=== PATIENT | female | born 1970 | race Caucasian/White ===

== ENCOUNTER 2016-03-16 10:45 | Emergency (ER) | payer OTHER ==
[~2016-03-16] VITALS: Ht 157.5 cm; Wt 53.2 kg
[~2016-03-16 10:45] MED LIST: BENADRYL; BENADRYL25 M2 PO; CEPHALEXIN500 M1 PO; CORTISPORIN OTI10 ML OT; DIGOXIN0.25 MG PO; ELIQUIS 5MG PO; FLONASEALLERGY NS; FOLIC ACID; KLOR-CON M2020 MEQ PO; LEVOTHYROXINE PO; LORTAB 5/500 501 TAB PO; MOTRIN 800800 MG/TAB PO; MVI; NORCO 325 MG-51 TAB PO; OMNICEF 300MG300 MG PO; PERCOCET 325 MG1 TA2 PO; POTASSIUM CH2 MEQ/ML PO; REGLAN 5MG T5 MG/TAB PO; ROXICODONE 55 MG/TAB PO; SINGULAIR PO; SYNTHROID0.075 MG/T PO; ULTRAM 50MG TAB50 MG PO; WELLBUTRIN PO; WELLBUTRIN XL300 M1 PO; ZOFRAN INJ4 MG/2 ML PO; ZOFRAN ODT4 MG PO; ZOFRAN8 MG PO; ZYRTEC 10MG10 MG PO; ZYRTEC10 MG PO
[2016-03-16 10:49] VITALS: TEMP 98.1
[2016-03-16] MEDS ORDERED: KLOR-CON M2020 MEQ PO (11:16)
[2016-03-16 11:17] LABS: BASO # 0.1 (0.0-0.2); BASO % 0.7 % (0.0-2.0); EOS % 0.3 % (0-4.0); GRAN # 3.6 (1.4-6.5); GRAN % 50.2 % (42.2-75.2); HEMATOCRIT 44.3 % (37.0-47.0); HEMOGLOBIN 15.4 g/dl (12.5-16.0); LYMPH % 41.2 % (20.0-51.0); MEAN CELL VOLUME 87 fl (80.0-100.0); MEAN CORPUSCULAR HEMOGLOBIN 30 pg (27.0-31.0); MEAN CORPUSCULAR HGB CONC 35 g/dl (33.0-37.0); MEAN PLATELET VOLUME 8.9 fl (7.4-10.4); MONO # 0.5 (0.1-0.6); MONO % 7.3 % (1.7-9.3); PLATELET COUNT 265 K/mm3 (130-400); RED BLOOD COUNT 5.12 M/mm3 (4.10-5.30); REDCELL DISTRIBUTION WIDTH-CV 13.3 % (11.5-14.5); WHITE BLOOD COUNT 7.2 K/mm3 (4.8-10.8)
[2016-03-16 11:31] LABS: ADJUSTED CALCIUM 9.2 mg/dL (8.4-10.2); ALANINE AMINOTRANSFERASE 35 U/L (9-52); ALBUMIN 4.8 gm/dL (3.5-5.0); ALKALINE PHOSPHATASE 73 U/L (50-136); ANION GAP 12 mmol/L (7-16); BILIRUBIN,TOTAL 1.5 mg/dL (0.0-1.0); BLOOD UREA NITROGEN 8 mg/dL (7-17); CALCIUM 9.8 mg/dL (8.4-10.2); CARBON DIOXIDE 18 mmol/L (22-30); CHLORIDE 108 mmol/L (98-107); GLUCOSE 96 mg/dL (74-106); LIPASE 84 U/L (23-300); POTASSIUM 3.9 mmol/L (3.4-5.0); SODIUM 138 mmol/L (137-145); TOTAL PROTEIN 7.8 gm/dL (6.4-8.2)
[2016-03-16 11:34] LABS: C-REACTIVE PROTEIN < 0.5 mg/dL (0.0-0.9)
[2016-03-16 11:41] LABS: PH 8 (5-8); SQUAMOUS EPITHELIAL 0-2 /hpf; URINE APPEARANCE Clear; URINE BACTERIA None Seen /hpf; URINE BILIRUBIN Negative (NEGATIVE); URINE BLOOD Negative (NEGATIVE); URINE COLOR Yellow; URINE GLUCOSE Negative (NEGATIVE); URINE KETONE Negative (NEGATIVE); URINE UROBILINOGEN Negative (NEGATIVE); URINE WBC 0-2 /hpf
[2016-03-16] MEDS ORDERED: PERCOCET 325 MG1 TA2 PO (15:06)
[2016-03-16] MEDS ORDERED: ZOFRAN ODT4 MG PO (15:06)
[2016-03-16 15:59] VITALS: BP 124/84; PULSE 78
== END 2016-03-16 16:01 | disposition home or self-care (01) ==
LOC: COL.ER 10:45
PROVIDERS: Emergency Medicine
DX: R10.13 Epigastric pain (principal); R11.2 Nausea with vomiting, unspecified; Z86.718 Personal history of other venous thrombosis and embolism; Z79.01 Long term (current) use of anticoagulants
CPT/HCPCS: J1170; J1200; J1630; J2405; J2765; J3010; J7030

== ENCOUNTER 2016-04-06 15:00 | Outpatient (RCR) | payer OTHER | END 2016-04-07 | disposition still patient (30) | LOC: WSPT | DX: R53.81 Other malaise (principal) ==

== ENCOUNTER → 2016-05-18 | Outpatient (CLI) | payer OTHER ==
[~2016-05-18] MED LIST changes: +NEURONTIN100 MG/CAP PO
== END ==
LOC: COL.RAD 09:24
DX: I47.1 Supraventricular tachycardia (principal); R53.81 Other malaise

== ENCOUNTER 2016-06-08 09:21 | Emergency (ER) | payer OTHER ==
[~2016-06-08] VITALS: Ht 157.5 cm; Wt 53.2 kg
[~2016-06-08 09:21] MED LIST changes: -NEURONTIN100 MG/CAP PO
[2016-06-08 09:24] VITALS: TEMP 98
[2016-06-08 10:15] LABS: BASO % 0.6 % (0.0-2.0); EOS % 0.1 % (0-4.0); GRAN # 3.9 (1.4-6.5); GRAN % 56.9 % (42.2-75.2); HEMATOCRIT 41.6 % (37.0-47.0); HEMOGLOBIN 14.4 g/dl (12.5-16.0); LYMPH # 2.4 (1.2-3.4); LYMPH % 34.7 % (20.0-51.0); MEAN CELL VOLUME 90 fl (80.0-100.0); MEAN CORPUSCULAR HEMOGLOBIN 31 pg (27.0-31.0); MEAN CORPUSCULAR HGB CONC 35 g/dl (33.0-37.0); MEAN PLATELET VOLUME 9.4 fl (7.4-10.4); MONO # 0.5 (0.1-0.6); MONO % 7.4 % (1.7-9.3); PLATELET COUNT 232 K/mm3 (130-400); RED BLOOD COUNT 4.63 M/mm3 (4.10-5.30); REDCELL DISTRIBUTION WIDTH-CV 12.8 % (11.5-14.5); WHITE BLOOD COUNT 6.9 K/mm3 (4.8-10.8)
[2016-06-08 10:20] LABS: INR 1.1 (0.8-3.0); PROTHROMBIN TIME 12.7 SECONDS (9.7-12.8)
[2016-06-08] MEDS ORDERED: NEURONTIN100 MG/CAP PO (10:20)
[2016-06-08 10:23] LABS: PARTIAL THROMBOPLASTIN TIME 28.2 SECONDS (26.0-37.0)
[2016-06-08 10:29] LABS: ADJUSTED CALCIUM 8.8 mg/dL (8.4-10.2); ALBUMIN 4.6 gm/dL (3.5-5.0); BILIRUBIN,TOTAL 0.9 mg/dL (0.0-1.0); CALCIUM 9.3 mg/dL (8.4-10.2); CREATININE, serum 0.81 mg/dL (0.52-1.25); POTASSIUM 3.9 mmol/L (3.4-5.0)
[2016-06-08] MEDS ORDERED: PERCOCET 325 MG1 TA2 PO (12:54)
[2016-06-08 13:11] VITALS: BP 115/74; PULSE 71
== END 2016-06-08 13:05 | disposition home or self-care (01) ==
LOC: COL.ER 09:21
PROVIDERS: Emergency Medicine
DX: R10.12 Left upper quadrant pain (principal); Z86.718 Personal history of other venous thrombosis and embolism; J45.909 Unspecified asthma, uncomplicated; Z95.0 Presence of cardiac pacemaker; Z90.49 Acquired absence of other specified parts of digestive tract
CPT/HCPCS: J1200; J2405; J2930; J3010; J7030; Q9967

== ENCOUNTER 2016-06-13 10:38 | Emergency (ER) | payer OTHER ==
[~2016-06-13] VITALS: Ht 157.5 cm; Wt 55.0 kg
[~2016-06-13 10:38] MED LIST changes: +NEURONTIN100 MG/CAP PO
[2016-06-13 10:49] VITALS: BP 122/67; TEMP 98
[2016-06-13 11:37] LABS: BASO % 0.5 % (0.0-2.0); EOS % 0.1 % (0-4.0); GRAN % 53.9 % (42.2-75.2); HEMATOCRIT 44.4 % (37.0-47.0); HEMOGLOBIN 15.8 g/dl (12.5-16.0); LYMPH # 2.9 (1.2-3.4); LYMPH % 38.6 % (20.0-51.0); MEAN CELL VOLUME 88 fl (80.0-100.0); MEAN CORPUSCULAR HEMOGLOBIN 31 pg (27.0-31.0); MEAN CORPUSCULAR HGB CONC 36 g/dl (33.0-37.0); MEAN PLATELET VOLUME 9.2 fl (7.4-10.4); MONO # 0.5 (0.1-0.6); MONO % 6.5 % (1.7-9.3); PLATELET COUNT 291 K/mm3 (130-400); RED BLOOD COUNT 5.04 M/mm3 (4.10-5.30); REDCELL DISTRIBUTION WIDTH-CV 12.4 % (11.5-14.5); WHITE BLOOD COUNT 7.5 K/mm3 (4.8-10.8)
[2016-06-13 11:46] LABS: ADJUSTED CALCIUM 9.1 mg/dL (8.4-10.2); ALBUMIN 4.6 gm/dL (3.5-5.0); BILIRUBIN,TOTAL 1.4 mg/dL (0.0-1.0); CALCIUM 9.6 mg/dL (8.4-10.2); CREATININE, serum 0.78 mg/dL (0.52-1.25); POTASSIUM 3.6 mmol/L (3.4-5.0); TOTAL PROTEIN 7.4 gm/dL (6.4-8.2)
[2016-06-13 12:05] LABS: PH 8 (5-8); SQUAMOUS EPITHELIAL None Seen /hpf; URINE APPEARANCE Clear; URINE BACTERIA None Seen /hpf; URINE BILIRUBIN Negative (NEGATIVE); URINE BLOOD Negative (NEGATIVE); URINE COLOR Yellow; URINE GLUCOSE Negative (NEGATIVE); URINE KETONE Negative (NEGATIVE); URINE RBC 0-2 /hpf; URINE UROBILINOGEN Negative (NEGATIVE); URINE WBC 0-2 /hpf
[2016-06-13 13:34] VITALS: PULSE 70
== END 2016-06-13 13:35 | disposition home or self-care (01) ==
LOC: COL.ER 10:38
PROVIDERS: Family Medicine
DX: R10.32 Left lower quadrant pain (principal); G89.29 Other chronic pain; I77.79 Dissection of other specified artery; Z79.01 Long term (current) use of anticoagulants
CPT/HCPCS: J1170; J1200; J2405; J2930; J7030; Q9967

== ENCOUNTER 2016-07-13 10:30 | Outpatient (RCR) | payer OTHER | END 2016-07-14 | disposition home or self-care (01) | LOC: WSC | DX: R53.81 Other malaise (principal) ==

== ENCOUNTER 2016-08-17 10:15 | Outpatient (RCR) | payer OTHER | END 2016-08-26 07:56 | disposition still patient (30) | LOC: WSC 10:15 | DX: M62.81 Muscle weakness (generalized) (principal); Z74.09 Other reduced mobility ==

== ENCOUNTER → 2016-10-14 | Outpatient (REF) | LOC: WSOH 16:21 | DX: Z02.89 Encounter for other administrative examinations (principal) ==

== ENCOUNTER 2016-10-29 20:33 | Emergency (ER) | payer OTHER ==
[~2016-10-29] VITALS: Ht 157.5 cm; Wt 53.6 kg
[2016-10-29 20:34] VITALS: TEMP 98
[2016-10-29 21:11] LABS: BASO # 0.1 (0.0-0.2); BASO % 0.6 % (0.0-2.0); EOS # 0.3 (0.0-0.7); EOS % 3.3 % (0-4.0); GRAN # 5.6 (1.4-6.5); GRAN % 55.7 % (42.2-75.2); HEMATOCRIT 41.4 % (37.0-47.0); HEMOGLOBIN 14.7 g/dl (12.5-16.0); LYMPH # 3.2 (1.2-3.4); LYMPH % 32.2 % (20.0-51.0); MEAN CELL VOLUME 89 fl (80.0-100.0); MEAN CORPUSCULAR HEMOGLOBIN 32 pg (27.0-31.0); MEAN CORPUSCULAR HGB CONC 36 g/dl (33.0-37.0); MEAN PLATELET VOLUME 9.3 fl (7.4-10.4); MONO # 0.8 (0.1-0.6); MONO % 7.9 % (1.7-9.3); PLATELET COUNT 252 K/mm3 (130-400); RED BLOOD COUNT 4.63 M/mm3 (4.10-5.30)
[2016-10-29 21:17] LABS: PH 7 (5-8); SQUAMOUS EPITHELIAL 0-2 /hpf; URINE APPEARANCE Clear; URINE BACTERIA None Seen /hpf; URINE BILIRUBIN Negative (NEGATIVE); URINE BLOOD Negative (NEGATIVE); URINE COLOR Yellow; URINE GLUCOSE Negative (NEGATIVE); URINE KETONE Trace (NEGATIVE); URINE RBC 0-2 /hpf; URINE UROBILINOGEN Negative (NEGATIVE); URINE WBC 0-2 /hpf
[2016-10-29 21:21] LABS: ADJUSTED CALCIUM 9.1 mg/dL (8.4-10.2); ALBUMIN 4.4 gm/dL (3.5-5.0); BILIRUBIN,TOTAL 0.7 mg/dL (0.0-1.0); CALCIUM 9.4 mg/dL (8.4-10.2); CREATININE, serum 1.08 mg/dL (0.52-1.25); POTASSIUM 3.9 mmol/L (3.4-5.0)
[2016-10-29] MEDS ORDERED: PERCOCET 325 MG1 TA2 PO (23:15)
[2016-10-29 23:26] VITALS: BP 116/76; PULSE 77
== END 2016-10-29 23:26 | disposition home or self-care (01) ==
LOC: COL.ER 20:33
PROVIDERS: Emergency Medicine
DX: R10.13 Epigastric pain (principal); R11.0 Nausea; E03.9 Hypothyroidism, unspecified; J45.909 Unspecified asthma, uncomplicated; I48.91 Unspecified atrial fibrillation; E05.00 Thyrotoxicosis with diffuse goiter without thyrotoxic crisis or storm; Z90.49 Acquired absence of other specified parts of digestive tract; Z90.710 Acquired absence of both cervix and uterus; Z90.89 Acquired absence of other organs; Z79.01 Long term (current) use of anticoagulants; Z95.0 Presence of cardiac pacemaker
CPT/HCPCS: J1200; J2405; J2930; J3010; J7030; Q9967

== ENCOUNTER → 2017-01-11 | Outpatient (CLI) | payer OTHER ==
[2017-01-11 09:14] LABS: BASO # 0.1 (0.0-0.2); BASO % 0.8 % (0.0-2.0); EOS # 0.1 (0.0-0.7); EOS % 2.3 % (0-4.0); GRAN # 3.4 (1.4-6.5); GRAN % 54.2 % (42.2-75.2); HEMATOCRIT 43.9 % (37.0-47.0); HEMOGLOBIN 15.3 g/dl (12.5-16.0); LYMPH # 2.2 (1.2-3.4); LYMPH % 35.6 % (20.0-51.0); MEAN CELL VOLUME 93 fl (80.0-100.0); MEAN CORPUSCULAR HEMOGLOBIN 33 pg (27.0-31.0); MEAN CORPUSCULAR HGB CONC 35 g/dl (33.0-37.0); MEAN PLATELET VOLUME 9.4 fl (7.4-10.4); MONO # 0.4 (0.1-0.6); MONO % 6.9 % (1.7-9.3); PLATELET COUNT 276 K/mm3 (130-400); RED BLOOD COUNT 4.71 M/mm3 (4.10-5.30); WHITE BLOOD COUNT 6.2 K/mm3 (4.8-10.8)
[2017-01-11 09:27] LABS: ADJUSTED CALCIUM 8.6 mg/dL (8.4-10.2); ALBUMIN 4.5 gm/dL (3.5-5.0); BILIRUBIN,TOTAL 1.5 mg/dL (0.0-1.0); CHOLESTEROL RISK RATIO 4.4; CREATININE, serum 0.9 mg/dL (0.52-1.25); POTASSIUM 4.1 mmol/L (3.4-5.0)
[2017-01-11 09:49] LABS: THYROID STIMULATING HORMONE 1.17 uIU/mL (0.465-4.680)
[2017-01-11 09:56] LABS: DIGOXIN 0.7 ng/mL (0.8-2.0)
== END ==
LOC: COL.LAB 08:05
PROVIDERS: Internal Medicine
DX: E03.4 Atrophy of thyroid (acquired) (principal); K55.069 Acute infarction of intestine, part and extent unspecified; I47.1 Supraventricular tachycardia

== ENCOUNTER 2017-02-25 22:52 | Inpatient (IN) | payer OTHER ==
[~2017-02-25] VITALS: Ht 157.5 cm; Wt 56.9 kg
[~2017-02-25 22:52] MED LIST changes: -DIGITEK0.25 MG PO; -PHARMASSURE CHE30 MG
[2017-02-25 23:34] LABS: HEMATOCRIT 45.7 % (37.0-47.0); HEMOGLOBIN 16.3 g/dl (12.5-16.0); MEAN CELL VOLUME 90 fl (80.0-100.0); MEAN CORPUSCULAR HEMOGLOBIN 32 pg (27.0-31.0); MEAN CORPUSCULAR HGB CONC 36 g/dl (33.0-37.0); MEAN PLATELET VOLUME 9.4 fl (7.4-10.4); PLATELET COUNT 247 K/mm3 (130-400); RED BLOOD COUNT 5.09 M/mm3 (4.10-5.30); REDCELL DISTRIBUTION WIDTH-CV 11.5 % (11.5-14.5)
[2017-02-25 23:39] LABS: INR 1.3 (0.8-3.0); PROTHROMBIN TIME 15.6 SECONDS (9.7-12.8)
[2017-02-25] MEDS ORDERED: DIGITEK0.25 MG PO (23:41)
[2017-02-25 23:43] LABS: EOSINOPHIL 1 % (0-4); LYMPHOCYTE 4 % (20.0-51.0); NEUTROPHILS 94 % (42.0-75.2); PLATELET ESTIMATE NORMAL (NORMAL)
[2017-02-25 23:47] LABS: BILIRUBIN,TOTAL 2.1 mg/dL (0.0-1.0); C-REACTIVE PROTEIN 0.5 mg/dL (0.0-0.9); CALCIUM 9.4 mg/dL (8.4-10.2); CREATININE, serum 0.84 mg/dL (0.52-1.25); POTASSIUM 3.6 mmol/L (3.4-5.0); TOTAL PROTEIN 7.6 gm/dL (6.4-8.2)
[2017-02-26 01:13] LABS: COLLECTION METHOD CLEAN CATCH
[2017-02-26 01:18] LABS: PH 7 (5-8); SQUAMOUS EPITHELIAL 0-2 /hpf; URINE APPEARANCE Clear; URINE BACTERIA None Seen /hpf; URINE BILIRUBIN Negative (NEGATIVE); URINE BLOOD Negative (NEGATIVE); URINE COLOR Yellow; URINE GLUCOSE Negative (NEGATIVE); URINE KETONE 1+ (NEGATIVE); URINE LEUKOCYTE ESTERASE Negative (NEGATIVE); URINE NITRATE Negative (NEGATIVE); URINE PROTEIN(semi-quant) Negative (NEGATIVE); URINE RBC 0-2 /hpf; URINE UROBILINOGEN Negative (NEGATIVE)
[2017-02-26] MEDS ORDERED: PHARMASSURE CHE30 MG (03:26)
[2017-02-26 05:38] VITALS: BP 100/51; PULSE 82; TEMP 97.7
[2017-02-26 05:56] VITALS: BP 100/51; PULSE 82; TEMP 97.7
[2017-02-26 08:15] LABS: HEMATOCRIT 41.3 % (37.0-47.0); HEMOGLOBIN 14.4 g/dl (12.5-16.0); MEAN CELL VOLUME 91 fl (80.0-100.0); MEAN CORPUSCULAR HEMOGLOBIN 32 pg (27.0-31.0); MEAN CORPUSCULAR HGB CONC 35 g/dl (33.0-37.0); MEAN PLATELET VOLUME 9.8 fl (7.4-10.4); PLATELET COUNT 205 K/mm3 (130-400); RED BLOOD COUNT 4.52 M/mm3 (4.10-5.30); REDCELL DISTRIBUTION WIDTH-CV 11.7 % (11.5-14.5)
[2017-02-26 08:29] LABS: BILIRUBIN,TOTAL 1.2 mg/dL (0.0-1.0); CREATININE, serum 0.7 mg/dL (0.52-1.25); POTASSIUM 3.6 mmol/L (3.4-5.0); TOTAL PROTEIN 6.3 gm/dL (6.4-8.2)
[2017-02-26 09:49] VITALS: BP 112/61; PULSE 89; TEMP 97.7
[2017-02-26 10:12] LABS: BAND 4 % (0-10); LYMPHOCYTE 8 % (20.0-51.0); NEUTROPHILS 87 % (42.0-75.2); PLATELET ESTIMATE NORMAL (NORMAL)
[2017-02-26 13:39] VITALS: BP 106/60; PULSE 84; TEMP 97.9
[2017-02-26 17:51] VITALS: BP 109/54; PULSE 87; TEMP 98.4
[2017-02-26 22:26] VITALS: BP 107/53; PULSE 81; TEMP 98.2
[2017-02-27 06:01] LABS: BASO % 0.2 % (0.0-2.0); EOS % 0.5 % (0-4.0); GRAN # 6.2 (1.4-6.5); GRAN % 76.6 % (42.2-75.2); HEMOGLOBIN 12.6 g/dl (12.5-16.0); LYMPH # 1.2 (1.2-3.4); LYMPH % 14.6 % (20.0-51.0); MEAN CELL VOLUME 93 fl (80.0-100.0); MEAN CORPUSCULAR HEMOGLOBIN 32 pg (27.0-31.0); MEAN CORPUSCULAR HGB CONC 34 g/dl (33.0-37.0); MEAN PLATELET VOLUME 9.7 fl (7.4-10.4); MONO # 0.6 (0.1-0.6); MONO % 7.7 % (1.7-9.3); PLATELET COUNT 178 K/mm3 (130-400); RED BLOOD COUNT 3.93 M/mm3 (4.10-5.30); REDCELL DISTRIBUTION WIDTH-CV 11.8 % (11.5-14.5)
[2017-02-27 06:02] LABS: HEMATOCRIT 36.7 % (37.0-47.0)
[2017-02-27 06:09] LABS: ALBUMIN 3.3 gm/dL (3.5-5.0); BILIRUBIN,TOTAL 1.2 mg/dL (0.0-1.0); CALCIUM 7.5 mg/dL (8.4-10.2); CREATININE, serum 0.72 mg/dL (0.52-1.25); POTASSIUM 3.1 mmol/L (3.4-5.0); TOTAL PROTEIN 5.5 gm/dL (6.4-8.2)
[2017-02-27 06:11] VITALS: BP 104/57; PULSE 82; TEMP 98.4
[2017-02-27 09:49] VITALS: BP 120/71; PULSE 77; TEMP 98.1
[2017-02-27 13:56] VITALS: BP 118/66; PULSE 77; TEMP 98.6
[2017-02-27 18:11] VITALS: BP 121/70; PULSE 76; TEMP 99
[2017-02-27 21:18] VITALS: BP 112/65; PULSE 75; TEMP 98.1
[2017-02-28 06:06] VITALS: BP 118/70; PULSE 76; TEMP 98.6
[2017-02-28 07:47] LABS: HEMATOCRIT 38.5 % (37.0-47.0); HEMOGLOBIN 13.2 g/dl (12.5-16.0); MEAN CELL VOLUME 93 fl (80.0-100.0); MEAN CORPUSCULAR HEMOGLOBIN 32 pg (27.0-31.0); MEAN CORPUSCULAR HGB CONC 34 g/dl (33.0-37.0); MEAN PLATELET VOLUME 9.8 fl (7.4-10.4); PLATELET COUNT 194 K/mm3 (130-400); RED BLOOD COUNT 4.16 M/mm3 (4.10-5.30); REDCELL DISTRIBUTION WIDTH-CV 11.9 % (11.5-14.5)
[2017-02-28 08:00] LABS: ALBUMIN 3.6 gm/dL (3.5-5.0); BILIRUBIN,TOTAL 0.8 mg/dL (0.0-1.0); C-REACTIVE PROTEIN 1.9 mg/dL (0.0-0.9); CALCIUM 7.9 mg/dL (8.4-10.2); CREATININE, serum 0.65 mg/dL (0.52-1.25); POTASSIUM 3.4 mmol/L (3.4-5.0); TOTAL PROTEIN 6.1 gm/dL (6.4-8.2)
[2017-02-28 08:27] LABS: BAND 2 % (0-10); BASOPHIL 2 % (0-2); EOSINOPHIL 1 % (0-4); LYMPHOCYTE 28 % (20.0-51.0); NEUTROPHILS 63 % (42.0-75.2)
[2017-02-28 08:31] LABS: PLATELET ESTIMATE NORMAL (NORMAL)
[2017-02-28 09:50] VITALS: BP 127/78; PULSE 71; TEMP 98.5
[2017-02-28 14:05] VITALS: BP 110/72; PULSE 76; TEMP 98.1
[2017-02-28 17:38] VITALS: BP 119/75; PULSE 81; TEMP 98.2
[2017-02-28 21:19] VITALS: BP 120/58; PULSE 84; TEMP 98.3
[2017-03-01 05:42] VITALS: BP 108/63; PULSE 69; TEMP 98.2
[2017-03-01 10:05] VITALS: BP 117/68; PULSE 72; TEMP 97.1
[2017-03-01 14:45] VITALS: BP 123/69; PULSE 78; TEMP 98.1
[2017-03-01] MEDS ORDERED: ZOFRAN ODT4 MG PO (17:20)
[2017-03-01 17:37] LABS: BASO % 0.5 % (0.0-2.0); EOS # 0.2 (0.0-0.7); GRAN # 4.6 (1.4-6.5); GRAN % 56.9 % (42.2-75.2); HEMATOCRIT 41.3 % (37.0-47.0); HEMOGLOBIN 14.8 g/dl (12.5-16.0); LYMPH # 2.7 (1.2-3.4); LYMPH % 32.7 % (20.0-51.0); MEAN CORPUSCULAR HEMOGLOBIN 32 pg (27.0-31.0); MEAN CORPUSCULAR HGB CONC 36 g/dl (33.0-37.0); MEAN PLATELET VOLUME 9.2 fl (7.4-10.4); MONO # 0.6 (0.1-0.6); MONO % 7.7 % (1.7-9.3); PLATELET COUNT 242 K/mm3 (130-400); RED BLOOD COUNT 4.67 M/mm3 (4.10-5.30); REDCELL DISTRIBUTION WIDTH-CV 11.7 % (11.5-14.5)
[2017-03-01 17:38] LABS: MEAN CELL VOLUME 88 fl (80.0-100.0)
[2017-03-01 17:44] VITALS: BP 122/81; PULSE 80; TEMP 98.4
[2017-03-01 17:46] LABS: ALBUMIN 4.4 gm/dL (3.5-5.0); CALCIUM 9.2 mg/dL (8.4-10.2); CREATININE, serum 0.65 mg/dL (0.52-1.25); POTASSIUM 3.3 mmol/L (3.4-5.0); TOTAL PROTEIN 6.9 gm/dL (6.4-8.2)
[2017-03-01 17:54] LABS: BILIRUBIN UNCONJUGATED 0.3 mg/dL (0.0-1.1); BILIRUBIN,DIRECT 0.2 mg/dL (0.0-0.4); BILIRUBIN,TOTAL 0.5 mg/dL (0.0-1.0)
== END 2017-03-01 18:16 | disposition home or self-care (01) | DRG 392 ==
LOC: COL.ER 22:52 → JCC 02-26 02:14
PROVIDERS: Emergency Medicine; Surgery
DX: A09 Infectious gastroenteritis and colitis, unspecified (principal); Z86.718 Personal history of other venous thrombosis and embolism; Z79.01 Long term (current) use of anticoagulants; E87.6 Hypokalemia
CPT/HCPCS: A9284; G0378; J1170; J1200; J2405; J2765; J2930; J3010; J3480; J7030; Q9967

== ENCOUNTER → 2017-02-25 | Outpatient (CLI) | payer OTHER ==
[2016-06-09 08:25] LABS: FACTOR V LEIDEN MUTATION B Negative (Negative)
[2016-06-10 14:00] LABS: FACTOR II ACTIVITY 112 % (72-140)
[2016-06-12 11:30] LABS: ANTI-THROMBIN III 112 % (72-128)
[2016-06-12 11:34] LABS: PROTEIN C ACTIVITY 124 % (70-150)
[~2017-02-25] MED LIST changes: +DIGITEK0.25 MG PO; +PHARMASSURE CHE30 MG
== END ==
LOC: COL.RAD 06-09 08:30 → COL.ER 09:00 → COL.RAD 03-08 09:22
PROVIDERS: Internal Medicine
DX: Z01.89 Encounter for other specified special examinations (principal)

== ENCOUNTER → 2017-03-08 | Outpatient (CLI) | payer OTHER ==
[~2017-03-08] MED LIST changes: +DIGITEK0.25 MG PO; +PHARMASSURE CHE30 MG
[2017-03-08 10:00] LABS: HEMATOCRIT 42.7 % (37.0-47.0); HEMOGLOBIN 14.8 g/dl (12.5-16.0); MEAN CELL VOLUME 92 fl (80.0-100.0); MEAN CORPUSCULAR HEMOGLOBIN 32 pg (27.0-31.0); MEAN CORPUSCULAR HGB CONC 35 g/dl (33.0-37.0); MEAN PLATELET VOLUME 9.3 fl (7.4-10.4); PLATELET COUNT 303 K/mm3 (130-400); RED BLOOD COUNT 4.66 M/mm3 (4.10-5.30); REDCELL DISTRIBUTION WIDTH-CV 11.9 % (11.5-14.5)
[2017-03-08 10:12] LABS: ALBUMIN 4.5 gm/dL (3.5-5.0); BILIRUBIN,TOTAL 1.2 mg/dL (0.0-1.0); CREATININE, serum 0.78 mg/dL (0.52-1.25); POTASSIUM 3.6 mmol/L (3.4-5.0)
== END ==
LOC: COL.LAB 09:31
PROVIDERS: Surgery
DX: R74.8 Abnormal levels of other serum enzymes (principal); R10.9 Unspecified abdominal pain

== ENCOUNTER → 2017-03-15 | Outpatient (CLI) | payer OTHER | LOC: COL.RAD 10:51 | DX: N28.89 Other specified disorders of kidney and ureter (principal); N83.8 Other noninflammatory disorders of ovary, fallopian tube and broad ligament; K52.9 Noninfective gastroenteritis and colitis, unspecified; Z90.49 Acquired absence of other specified parts of digestive tract; Z90.710 Acquired absence of both cervix and uterus | CPT/HCPCS: J7050; Q9967 ==

== ENCOUNTER → 2017-03-18 | Outpatient (CLI) | payer OTHER ==
[2017-03-18 09:24] LABS: COLLECTION METHOD CLEAN CATCH
[2017-03-18 09:38] LABS: MUCOUS Present /lpf; PH 8 (5-8); SQUAMOUS EPITHELIAL 0-2 /hpf; URINE APPEARANCE Clear; URINE BACTERIA Rare /hpf; URINE BILIRUBIN Negative (NEGATIVE); URINE BLOOD Negative (NEGATIVE); URINE COLOR Yellow; URINE GLUCOSE Negative (NEGATIVE); URINE KETONE Negative (NEGATIVE); URINE LEUKOCYTE ESTERASE Negative (NEGATIVE); URINE NITRATE Negative (NEGATIVE); URINE PROTEIN(semi-quant) Negative (NEGATIVE); URINE RBC 0-2 /hpf; URINE UROBILINOGEN Negative (NEGATIVE); URINE WBC 0-2 /hpf
== END ==
LOC: COL.LAB 09:06
PROVIDERS: Surgery
DX: R10.9 Unspecified abdominal pain (principal)

== ENCOUNTER → 2017-08-02 | Outpatient (CLI) | payer BC | LOC: MC.RAD 07:40 | DX: Z12.31 Encounter for screening mammogram for malignant neoplasm of breast (principal) ==

== ENCOUNTER → 2017-08-04 | Outpatient (CLI) | payer BC | LOC: MC.RAD 08:00 | DX: N64.89 Other specified disorders of breast (principal) ==

== ENCOUNTER → 2017-08-30 | Outpatient (CLI) | payer OTHER ==
[2017-08-30 08:08] LABS: ALBUMIN 4.1 gm/dL (3.5-5.0); CALCIUM 9.1 mg/dL (8.4-10.2); CREATININE, serum 0.85 mg/dL (0.52-1.25); POTASSIUM 4.1 mmol/L (3.4-5.0); TOTAL PROTEIN 6.7 gm/dL (6.4-8.2)
== END ==
LOC: COL.LAB 07:29
PROVIDERS: Internal Medicine
DX: L03.317 Cellulitis of buttock (principal)

== ENCOUNTER 2017-09-09 16:48 | Emergency (ER) | payer OTHER ==
[~2017-09-09] VITALS: Ht 157.5 cm; Wt 51.8 kg
[2017-09-09 16:50] VITALS: TEMP 97.8
[2017-09-09 17:41] LABS: COLLECTION METHOD CLEAN CATCH
[2017-09-09 17:49] LABS: BASO # 0.1 (0.0-0.2); BASO % 1.1 % (0.0-2.0); EOS # 0.2 (0.0-0.7); EOS % 2.3 % (0-4.0); GRAN # 2.7 (1.4-6.5); GRAN % 41.8 % (42.2-75.2); HEMATOCRIT 39.9 % (37.0-47.0); HEMOGLOBIN 14.1 g/dl (12.5-16.0); LYMPH # 2.9 (1.2-3.4); LYMPH % 45.3 % (20.0-51.0); MEAN CELL VOLUME 91 fl (80.0-100.0); MEAN CORPUSCULAR HEMOGLOBIN 32 pg (27.0-31.0); MEAN CORPUSCULAR HGB CONC 35 g/dl (33.0-37.0); MEAN PLATELET VOLUME 9.4 fl (7.4-10.4); MONO # 0.6 (0.1-0.6); MONO % 9.2 % (1.7-9.3); PLATELET COUNT 255 K/mm3 (130-400); RED BLOOD COUNT 4.39 M/mm3 (4.10-5.30); REDCELL DISTRIBUTION WIDTH-CV 12.1 % (11.5-14.5)
[2017-09-09] MEDS ORDERED: PREMARIN .3MG0.3 MG PO (17:50)
[2017-09-09 17:55] LABS: PH 8 (5-8); SQUAMOUS EPITHELIAL 0-2 /hpf; URINE APPEARANCE Clear; URINE BACTERIA None Seen /hpf; URINE BILIRUBIN Negative (NEGATIVE); URINE BLOOD Negative (NEGATIVE); URINE COLOR Straw; URINE GLUCOSE Negative (NEGATIVE); URINE KETONE Negative (NEGATIVE); URINE LEUKOCYTE ESTERASE Negative (NEGATIVE); URINE NITRATE Negative (NEGATIVE); URINE PROTEIN(semi-quant) Negative (NEGATIVE); URINE RBC 0-2 /hpf; URINE UROBILINOGEN Negative (NEGATIVE)
[2017-09-09 18:00] LABS: ALBUMIN 4.3 gm/dL (3.5-5.0); BILIRUBIN,TOTAL 0.5 mg/dL (0.0-1.0); C-REACTIVE PROTEIN 0.6 mg/dL (0.0-0.9); CALCIUM 9.3 mg/dL (8.4-10.2); CREATININE, serum 0.76 mg/dL (0.52-1.25); POTASSIUM 3.2 mmol/L (3.4-5.0); TOTAL PROTEIN 7.2 gm/dL (6.4-8.2)
[2017-09-09] MEDS ORDERED: ZOFRAN ODT4 MG PO (19:54)
[2017-09-09] MEDS ORDERED: NORCO 325 MG-51 TAB PO (19:54)
[2017-09-09 20:38] VITALS: BP 131/80; PULSE 74
== END 2017-09-09 20:40 | disposition home or self-care (01) ==
LOC: COL.ER 16:48
PROVIDERS: Physician Assistant
DX: R10.31 Right lower quadrant pain (principal); R10.32 Left lower quadrant pain; F41.9 Anxiety disorder, unspecified; F32.9 Major depressive disorder, single episode, unspecified; E03.9 Hypothyroidism, unspecified; Z95.5 Presence of coronary angioplasty implant and graft; Z87.442 Personal history of urinary calculi; Z86.718 Personal history of other venous thrombosis and embolism; Z90.49 Acquired absence of other specified parts of digestive tract; Z90.710 Acquired absence of both cervix and uterus
CPT/HCPCS: J1170; J1200; J2405; J2930; J3010; J7030; Q9967

== ENCOUNTER → 2017-09-10 | Outpatient (CLI) | payer OTHER ==
[~2017-09-10] MED LIST changes: +PREMARIN .3MG0.3 MG PO; +SINGULAIR 110 MG/TAB PO; -SINGULAIR PO
== END ==
LOC: COL.RAD 14:32
DX: M79.605 Pain in left leg (principal); R10.32 Left lower quadrant pain

== ENCOUNTER 2017-12-31 10:15 | Outpatient (RCR) | payer OTHER ==
[~2017-12-31 10:15] MED LIST changes: +ZOFRAN 4MG T4 MG/TAB PO
== END 2018-02-17 | disposition home or self-care (01) ==
LOC: WSPT
DX: K55.069 Acute infarction of intestine, part and extent unspecified (principal); R10.9 Unspecified abdominal pain; G89.29 Other chronic pain; Z79.891 Long term (current) use of opiate analgesic; Z79.899 Other long term (current) drug therapy

== ENCOUNTER → 2018-04-28 | Outpatient (CLI) | payer OTHER ==
[2018-04-28 11:05] LABS: BASO % 0.5 % (0.0-2.0); EOS # 0.2 (0.0-0.7); EOS % 2.7 % (0-4.0); GRAN # 2.6 (1.4-6.5); HEMATOCRIT 42.2 % (37.0-47.0); HEMOGLOBIN 14.7 g/dl (12.5-16.0); LYMPH # 2.3 (1.2-3.4); LYMPH % 42.1 % (20.0-51.0); MEAN CELL VOLUME 91 fl (80.0-100.0); MEAN CORPUSCULAR HEMOGLOBIN 32 pg (27.0-31.0); MEAN CORPUSCULAR HGB CONC 35 g/dl (33.0-37.0); MEAN PLATELET VOLUME 9.4 fl (7.4-10.4); MONO # 0.5 (0.1-0.6); MONO % 8.5 % (1.7-9.3); PLATELET COUNT 251 K/mm3 (130-400); RED BLOOD COUNT 4.66 M/mm3 (4.10-5.30); REDCELL DISTRIBUTION WIDTH-CV 11.9 % (11.5-14.5)
[2018-04-28 11:16] LABS: ALANINE AMINOTRANSFERASE 27 U/L (9-52); ALBUMIN 4.4 gm/dL (3.5-5.0); ALKALINE PHOSPHATASE 71 U/L (50-136); ANION GAP 8 mmol/L (7-16); AST,SGOT 20 U/L (15-37); BILIRUBIN,TOTAL 1.2 mg/dL (0.0-1.0); BLOOD UREA NITROGEN 10 mg/dL (7-17); CALCIUM 9.3 mg/dL (8.4-10.2); CARBON DIOXIDE 23 mmol/L (22-30); CHLORIDE 106 mmol/L (98-107); CHOLESTEROL 189 mg/dL (120-200); CHOLESTEROL RISK RATIO 4.1; CREATININE, serum 0.77 mg/dL (0.52-1.25); GLUCOSE 95 mg/dL (74-106); HDL CHOLESTEROL 46 mg/dL; LDL CHOLESTEROL 119 mg/dL; POTASSIUM 3.9 mmol/L (3.4-5.0); SODIUM 137 mmol/L (137-145); TRIGLYCERIDE 120 mg/dL
[2018-04-28 11:43] LABS: DIGOXIN < 0.4 ng/mL (0.8-2.0); THYROID STIMULATING HORMONE 0.291 uIU/mL (0.465-4.680)
== END ==
LOC: COL.LAB 09:40
PROVIDERS: Internal Medicine
DX: E03.4 Atrophy of thyroid (acquired) (principal); I48.0 Paroxysmal atrial fibrillation; K55.069 Acute infarction of intestine, part and extent unspecified; J45.909 Unspecified asthma, uncomplicated; I47.1 Supraventricular tachycardia

== ENCOUNTER 2018-07-12 20:02 | Emergency (ER) | payer OTHER ==
[2018-07-12 20:08] VITALS: TEMP 98.2
[2018-07-12 20:51] LABS: BASO # 0.1 (0.0-0.2); BASO % 0.5 % (0.0-2.0); EOS # 0.1 (0.0-0.7); EOS % 0.7 % (0-4.0); HEMATOCRIT 41.2 % (37.0-47.0); HEMOGLOBIN 14.5 g/dl (12.5-16.0); LYMPH # 2.1 (1.2-3.4); LYMPH % 19.2 % (20.0-51.0); MEAN CELL VOLUME 90 fl (80.0-100.0); MEAN CORPUSCULAR HEMOGLOBIN 32 pg (27.0-31.0); MEAN CORPUSCULAR HGB CONC 35 g/dl (33.0-37.0); MEAN PLATELET VOLUME 9.6 fl (7.4-10.4); MONO # 0.7 (0.1-0.6); MONO % 6.1 % (1.7-9.3); PLATELET COUNT 266 K/mm3 (130-400); RED BLOOD COUNT 4.56 M/mm3 (4.10-5.30); REDCELL DISTRIBUTION WIDTH-CV 12.3 % (11.5-14.5)
[2018-07-12 20:57] LABS: ALBUMIN 4.8 gm/dL (3.5-5.0); BILIRUBIN,TOTAL 0.9 mg/dL (0.0-1.0); CALCIUM 9.6 mg/dL (8.4-10.2); CREATININE, serum 1.01 (0.52-1.25); TOTAL PROTEIN 7.5 gm/dL (6.4-8.2)
[2018-07-12 22:01] VITALS: BP 140/94; PULSE 74
== END 2018-07-12 22:54 | disposition home or self-care (01) ==
LOC: COL.ER 20:02
PROVIDERS: Family Medicine
DX: R10.13 Epigastric pain (principal); F41.9 Anxiety disorder, unspecified
CPT/HCPCS: J1170; J1200; J2060; J2405; J2550; J2930; J7030; Q9967

== ENCOUNTER → 2018-08-24 | Outpatient (CLI) | payer OTHER ==
[2018-08-24 12:18] LABS: STREP SCREEN NEGATIVE
== END ==
LOC: COL.LAB 11:24
PROVIDERS: Internal Medicine
DX: E03.4 Atrophy of thyroid (acquired) (principal); J02.9 Acute pharyngitis, unspecified; J01.90 Acute sinusitis, unspecified

== ENCOUNTER → 2018-10-13 | Outpatient (CLI) | payer OTHER ==
[~2018-10-13] MED LIST changes: +FLEXERIL 1010 MG/TAB PO
== END ==
LOC: COL.RAD 08:41
DX: M25.551 Pain in right hip (principal)
CPT/HCPCS: A9503

== ENCOUNTER 2018-12-07 13:45 | Outpatient (RCR) | payer OTHER | END 2019-01-08 | disposition home or self-care (01) | LOC: MKS.ESL.PT | DX: S70.01XA Contusion of right hip, initial encounter (principal) ==

== ENCOUNTER 2019-03-31 19:50 | Emergency (ER) | payer OTHER ==
[~2019-03-31] VITALS: Ht 157.5 cm; Wt 56.8 kg
[2019-03-31 19:54] VITALS: TEMP 98.1
[2019-03-31 21:00] LABS: BASO # 0.1 (0.0-0.2); BASO % 0.7 % (0.0-2.0); EOS # 0.1 (0.0-0.7); EOS % 1.1 % (0-4.0); GRAN # 5.6 (1.4-6.5); GRAN % 63.3 % (42.2-75.2); HEMATOCRIT 44.3 % (37.0-47.0); HEMOGLOBIN 15.5 g/dl (12.5-16.0); LYMPH # 2.5 (1.2-3.4); MEAN CELL VOLUME 91 fl (80.0-100.0); MEAN CORPUSCULAR HEMOGLOBIN 32 pg (27.0-31.0); MEAN CORPUSCULAR HGB CONC 35 g/dl (33.0-37.0); MEAN PLATELET VOLUME 9.4 fl (7.4-10.4); MONO # 0.6 (0.1-0.6); MONO % 6.6 % (1.7-9.3); PLATELET COUNT 281 K/mm3 (130-400); RED BLOOD COUNT 4.86 M/mm3 (4.10-5.30)
[2019-03-31 21:02] LABS: INR 1.2 (0.8-3.0); PROTHROMBIN TIME 14.4 SECONDS (9.7-12.8)
[2019-03-31 21:21] LABS: ALBUMIN 5.1 gm/dL (3.5-5.0); BILIRUBIN,TOTAL 0.9 mg/dL (0.0-1.0); CALCIUM 9.5 mg/dL (8.4-10.2); CREATININE, serum 0.9 (0.52-1.25); POTASSIUM 3.2 mmol/L (3.4-5.0); TOTAL PROTEIN 7.9 gm/dL (6.4-8.2)
[2019-03-31 23:20] VITALS: BP 144/89; PULSE 78
== END 2019-03-31 23:20 | disposition home or self-care (01) ==
LOC: COL.ER 19:50
PROVIDERS: Emergency Medicine
DX: S20.211A Contusion of right front wall of thorax, initial encounter (principal); S30.1XXA Contusion of abdominal wall, initial encounter; I10 Essential (primary) hypertension; R40.2410 Glasgow coma scale score 13-15, unspecified time; Z79.01 Long term (current) use of anticoagulants; Z79.51 Long term (current) use of inhaled steroids; V43.52XA Car driver injured in collision with other type car in traffic accident, initial encounter
CPT/HCPCS: J1200; J2405; J2930; J3010; Q9967

== ENCOUNTER → 2019-05-08 | Outpatient (CLI) | payer OTHER ==
[2019-05-08 10:14] LABS: BASO # 0.1 (0.0-0.2); BASO % 0.8 % (0.0-2.0); EOS # 0.2 (0.0-0.7); EOS % 2.8 % (0-4.0); GRAN # 3.1 (1.4-6.5); GRAN % 49.6 % (42.2-75.2); HEMATOCRIT 42.8 % (37.0-47.0); HEMOGLOBIN 14.8 g/dl (12.5-16.0); LYMPH # 2.4 (1.2-3.4); LYMPH % 39.4 % (20.0-51.0); MEAN CELL VOLUME 92 fl (80.0-100.0); MEAN CORPUSCULAR HEMOGLOBIN 32 pg (27.0-31.0); MEAN CORPUSCULAR HGB CONC 35 g/dl (33.0-37.0); MEAN PLATELET VOLUME 9.1 fl (7.4-10.4); MONO # 0.4 (0.1-0.6); MONO % 7.1 % (1.7-9.3); PLATELET COUNT 242 K/mm3 (130-400); RED BLOOD COUNT 4.68 M/mm3 (4.10-5.30)
[2019-05-08 10:31] LABS: ALBUMIN 4.7 gm/dL (3.5-5.0); BILIRUBIN,TOTAL 1.1 mg/dL (0.0-1.0); CALCIUM 9.1 mg/dL (8.4-10.2); CHOLESTEROL RISK RATIO 4.1; CREATININE, serum 0.92 (0.52-1.25); POTASSIUM 3.9 mmol/L (3.4-5.0); TOTAL PROTEIN 7.2 gm/dL (6.4-8.2)
[2019-05-08 11:00] LABS: THYROID STIMULATING HORMONE 4.64 uIU/mL (0.465-4.680)
== END ==
LOC: COL.LAB 09:46
PROVIDERS: Internal Medicine
DX: I48.0 Paroxysmal atrial fibrillation (principal); K55.069 Acute infarction of intestine, part and extent unspecified; E03.4 Atrophy of thyroid (acquired); R10.9 Unspecified abdominal pain; G89.29 Other chronic pain

== ENCOUNTER 2019-06-12 12:46 | Emergency (ER) | payer OTHER ==
[~2019-06-12] VITALS: Ht 157.5 cm; Wt 57.7 kg
[2019-06-12 12:54] VITALS: TEMP 98
[2019-06-12 13:38] LABS: HEMATOCRIT 41.5 % (37.0-47.0); HEMOGLOBIN 14.6 g/dl (12.5-16.0); MEAN CELL VOLUME 89 fl (80.0-100.0); MEAN CORPUSCULAR HEMOGLOBIN 32 pg (27.0-31.0); MEAN CORPUSCULAR HGB CONC 35 g/dl (33.0-37.0); MEAN PLATELET VOLUME 9.2 fl (7.4-10.4); PLATELET COUNT 254 K/mm3 (130-400); RED BLOOD COUNT 4.64 M/mm3 (4.10-5.30)
[2019-06-12 13:48] LABS: ALANINE AMINOTRANSFERASE 18 U/L (4-34); ALBUMIN 4.6 gm/dL (3.5-5.0); ALKALINE PHOSPHATASE 88 U/L (50-136); ANION GAP 10 mmol/L (7-16); AST,SGOT 26 U/L (15-37); BILIRUBIN,TOTAL 1.1 mg/dL (0.0-1.0); BLOOD UREA NITROGEN 9 mg/dL (7-17); CALCIUM 8.9 mg/dL (8.4-10.2); CARBON DIOXIDE 20 mmol/L (22-30); CHLORIDE 105 mmol/L (98-107); CREATININE, serum 0.77 (0.52-1.25); GLUCOSE 119 mg/dL (74-106); SODIUM 136 mmol/L (137-145); TOTAL PROTEIN 7.3 gm/dL (6.4-8.2)
[2019-06-12 13:51] LABS: C-REACTIVE PROTEIN < 0.5 mg/dL (0.0-0.9); POTASSIUM 2.9 mmol/L (3.4-5.0)
[2019-06-12 13:59] LABS: TROPONIN-I < 0.012 ng/mL (0.000-0.035)
[2019-06-12 14:17] LABS: INR 1.3 (0.8-3.0); PROTHROMBIN TIME 15.7 SECONDS (9.7-12.8)
[2019-06-12 14:22] LABS: BAND 2 % (0-10); EOSINOPHIL 3 % (0-4); LYMPHOCYTE 47 % (20.0-51.0); NEUTROPHILS 38 % (42.0-75.2); PLATELET ESTIMATE NORMAL (NORMAL)
[2019-06-12 15:29] VITALS: BP 129/87; PULSE 70
== END 2019-06-12 15:30 | disposition home or self-care (01) ==
LOC: COL.ER 12:46
PROVIDERS: Emergency Medicine
DX: E87.6 Hypokalemia (principal); R00.2 Palpitations; I48.91 Unspecified atrial fibrillation; Z95.0 Presence of cardiac pacemaker; Z79.51 Long term (current) use of inhaled steroids; Z79.899 Other long term (current) drug therapy; Z79.01 Long term (current) use of anticoagulants; Z90.710 Acquired absence of both cervix and uterus; Z98.890 Other specified postprocedural states
CPT/HCPCS: J2405; J7030

== ENCOUNTER → 2019-06-30 | Outpatient (CLI) | payer OTHER ==
[2019-06-30 12:18] LABS: CREATININE, serum 0.8 (0.52-1.25); POTASSIUM 3.9 mmol/L (3.4-5.0)
== END ==
LOC: COL.LAB 11:13
PROVIDERS: Internal Medicine
DX: E87.6 Hypokalemia (principal)

== ENCOUNTER → 2020-03-19 | Outpatient (CLI) | payer OTHER | LOC: COL.RAD 10:03 | DX: K55.069 Acute infarction of intestine, part and extent unspecified (principal); Z90.49 Acquired absence of other specified parts of digestive tract | CPT/HCPCS: Q9967 ==

== ENCOUNTER → 2020-05-16 | Outpatient (REF) ==
[~2020-05-16] MED LIST changes: +IMDUR 30MG30 MG/TAB PO; +LANOXIN 0.25M0.25 MG PO; +NORVASC2.5 MG PO; +SYNTHROID0.05 MG/TA PO
== END ==
LOC: COL.LAB 13:01
DX: Z20.822 Contact with and (suspected) exposure to COVID-19 (principal)

== ENCOUNTER → 2020-06-05 | Outpatient (CLI) | payer OTHER | LOC: MC.RAD 13:45 | DX: Z12.31 Encounter for screening mammogram for malignant neoplasm of breast (principal); N63.20 Unspecified lump in the left breast, unspecified quadrant ==

== ENCOUNTER → 2020-06-07 | Outpatient (CLI) | payer OTHER ==
[2020-06-07 11:04] LABS: BASO # 0.1 (0.0-0.2); BASO % 0.8 % (0.0-2.0); EOS # 0.1 (0.0-0.7); EOS % 1.6 % (0-4.0); GRAN # 2.7 (1.4-6.5); GRAN % 43.9 % (42.2-75.2); HEMATOCRIT 43.1 % (37.0-47.0); HEMOGLOBIN 14.9 g/dl (12.5-16.0); LYMPH # 2.8 (1.2-3.4); LYMPH % 44.9 % (20.0-51.0); MEAN CELL VOLUME 92 fl (80.0-100.0); MEAN CORPUSCULAR HEMOGLOBIN 32 pg (27.0-31.0); MEAN CORPUSCULAR HGB CONC 35 g/dl (33.0-37.0); MONO # 0.5 (0.1-0.6); MONO % 8.6 % (1.7-9.3); PLATELET COUNT 246 K/mm3 (130-400); RED BLOOD COUNT 4.71 M/mm3 (4.10-5.30); REDCELL DISTRIBUTION WIDTH-CV 11.9 % (11.5-14.5)
[2020-06-07 11:18] LABS: ALBUMIN 4.6 gm/dL (3.5-5.0); BILIRUBIN,TOTAL 0.9 mg/dL (0.0-1.0); CHOLESTEROL RISK RATIO 4.5; CREATININE, serum 0.96 (0.52-1.25); POTASSIUM 3.8 mmol/L (3.4-5.0); TOTAL PROTEIN 7.5 gm/dL (6.4-8.2)
[2020-06-07 11:48] LABS: THYROID STIMULATING HORMONE 5.28 uIU/mL (0.465-4.680)
== END ==
LOC: COL.LAB 10:23
DX: E03.4 Atrophy of thyroid (acquired) (principal); K55.069 Acute infarction of intestine, part and extent unspecified; I48.0 Paroxysmal atrial fibrillation; I49.5 Sick sinus syndrome

== ENCOUNTER 2020-06-11 04:18 | Emergency (ER) | payer OTHER ==
[~2020-06-11] VITALS: Ht 157.5 cm; Wt 59.1 kg
[~2020-06-11 04:18] MED LIST changes: -IMDUR 30MG30 MG/TAB PO; -LANOXIN 0.25M0.25 MG PO; -NORVASC2.5 MG PO; -SYNTHROID0.05 MG/TA PO
[2020-06-11 04:40] LABS: BASO # 0.1 (0.0-0.2); BASO % 0.9 % (0.0-2.0); EOS # 0.1 (0.0-0.7); GRAN # 3.3 (1.4-6.5); HEMOGLOBIN 14.9 g/dl (12.5-16.0); LYMPH # 2.6 (1.2-3.4); LYMPH % 39.4 % (20.0-51.0); MEAN CELL VOLUME 91 fl (80.0-100.0); MEAN CORPUSCULAR HEMOGLOBIN 31 pg (27.0-31.0); MEAN CORPUSCULAR HGB CONC 35 g/dl (33.0-37.0); MONO # 0.5 (0.1-0.6); MONO % 7.5 % (1.7-9.3); PLATELET COUNT 274 K/mm3 (130-400); RED BLOOD COUNT 4.75 M/mm3 (4.10-5.30)
[2020-06-11 04:51] LABS: ALANINE AMINOTRANSFERASE 21 U/L (4-34); ALBUMIN 4.6 gm/dL (3.5-5.0); ALKALINE PHOSPHATASE 80 U/L (50-136); ANION GAP 12 mmol/L (7-16); AST,SGOT 21 U/L (15-37); BILIRUBIN,TOTAL 0.9 mg/dL (0.0-1.0); BLOOD UREA NITROGEN 13 mg/dL (7-17); CARBON DIOXIDE 21 mmol/L (22-30); CHLORIDE 106 mmol/L (98-107); CREATININE, serum 0.95 (0.52-1.25); GLUCOSE 112 mg/dL (74-106); LIPASE 124 U/L (23-300); POTASSIUM 3.6 mmol/L (3.4-5.0); SODIUM 139 mmol/L (137-145); TOTAL PROTEIN 7.3 gm/dL (6.4-8.2)
[2020-06-11 04:54] LABS: INR 1.5 (0.8-3.0); PROTHROMBIN TIME 17.2 SECONDS (9.7-12.8)
[2020-06-11 04:57] LABS: PARTIAL THROMBOPLASTIN TIME 36.3 SECONDS (26.0-37.0)
[2020-06-11 05:04] LABS: TROPONIN-I < 0.012 ng/mL (0.000-0.035)
[2020-06-11 06:18] VITALS: TEMP 98
[2020-06-11] MEDS ORDERED: IMDUR 30MG30 MG/TAB PO (06:22)
[2020-06-11] MEDS ORDERED: ZYRTEC 10MG10 MG PO (06:23)
[2020-06-11] MEDS ORDERED: ULTRAM 50MG TAB50 MG PO (06:23)
[2020-06-11 06:45] VITALS: BP 121/78; PULSE 69
[2020-07-08] MEDS ORDERED: BENADRYL25 M2 PO (13:40)
[2020-07-08] MEDS ORDERED: LANOXIN 0.25M0.25 MG PO (13:41)
[2020-07-08] MEDS ORDERED: NEURONTIN100 MG/CAP PO (13:43)
[2020-07-08] MEDS ORDERED: NORCO 325 MG-51 TAB PO (13:55)
[2020-07-08] MEDS ORDERED: SYNTHROID0.05 MG/TA PO (13:56)
[2020-07-08] MEDS ORDERED: ZOFRAN 4MG T4 MG/TAB PO (13:57)
[2020-07-08] MEDS ORDERED: ROXICODONE 55 MG/TAB PO (13:58)
[2020-07-08] MEDS ORDERED: ULTRAM 50MG TAB50 MG PO (13:59)
[2020-07-08] MEDS ORDERED: NORVASC2.5 MG PO (14:02)
== END 2020-06-11 07:22 | disposition home or self-care (01) ==
LOC: COL.ER 04:18
PROVIDERS: Emergency Medicine
DX: R07.2 Precordial pain (principal); R00.2 Palpitations; I48.91 Unspecified atrial fibrillation; Z95.0 Presence of cardiac pacemaker; Z79.01 Long term (current) use of anticoagulants; Z88.2 Allergy status to sulfonamides; Z88.1 Allergy status to other antibiotic agents; Z88.6 Allergy status to analgesic agent; Z88.8 Allergy status to other drugs, medicaments and biological substances
CPT/HCPCS: J2270; J2405; J3010

== ENCOUNTER → 2020-06-12 | Outpatient (CLI) | payer OTHER ==
[~2020-06-12] MED LIST changes: +IMDUR 30MG30 MG/TAB PO; +LANOXIN 0.25M0.25 MG PO; +NORVASC2.5 MG PO; +SYNTHROID0.05 MG/TA PO
== END ==
LOC: MC.RAD 14:00
DX: N60.02 Solitary cyst of left breast (principal)

== ENCOUNTER → 2020-07-12 | Outpatient (CLI) | payer OTHER ==
[2020-07-12] VITALS (7 sets, daily range): BP systolic 124–146; BP diastolic 75–91; PULSE 82–100
[~2020-07-12] VITALS: Ht 157.5 cm; Wt 59.7 kg
== END ==
LOC: COL.CARD 10:45
DX: R07.9 Chest pain, unspecified (principal); R00.2 Palpitations
CPT/HCPCS: A9500; J2785

== ENCOUNTER 2020-08-12 11:18 | Emergency (ER) | payer OTHER ==
[~2020-08-12] VITALS: Ht 157.5 cm; Wt 61.4 kg
[2020-08-12 11:49] VITALS: TEMP 97.3
[2020-08-12 13:35] LABS: BASO # 0.1 (0.0-0.2); BASO % 0.9 % (0.0-2.0); EOS # 0.2 (0.0-0.7); EOS % 3.5 % (0-4.0); GRAN # 3.3 (1.4-6.5); GRAN % 49.1 % (42.2-75.2); HEMATOCRIT 40.8 % (37.0-47.0); HEMOGLOBIN 14.3 g/dl (12.5-16.0); LYMPH # 2.5 (1.2-3.4); LYMPH % 38.3 % (20.0-51.0); MEAN CELL VOLUME 91 fl (80.0-100.0); MEAN CORPUSCULAR HEMOGLOBIN 32 pg (27.0-31.0); MEAN CORPUSCULAR HGB CONC 35 g/dl (33.0-37.0); MEAN PLATELET VOLUME 9.1 fl (7.4-10.4); MONO # 0.5 (0.1-0.6); MONO % 7.9 % (1.7-9.3); PLATELET COUNT 267 K/mm3 (130-400); RED BLOOD COUNT 4.51 M/mm3 (4.10-5.30); REDCELL DISTRIBUTION WIDTH-CV 12.6 % (11.5-14.5)
[2020-08-12 13:45] LABS: ALANINE AMINOTRANSFERASE 24 U/L (4-34); ALBUMIN 4.4 gm/dL (3.5-5.0); ALKALINE PHOSPHATASE 74 U/L (50-136); ANION GAP 7 mmol/L (7-16); AST,SGOT 27 U/L (15-37); BILIRUBIN,TOTAL 1.1 mg/dL (0.0-1.0); BLOOD UREA NITROGEN 9 mg/dL (7-17); CALCIUM 9.6 mg/dL (8.4-10.2); CARBON DIOXIDE 24 mmol/L (22-30); CHLORIDE 110 mmol/L (98-107); CREATININE, serum 0.83 (0.52-1.25); GLUCOSE 99 mg/dL (74-106); POTASSIUM 3.7 mmol/L (3.4-5.0); SODIUM 140 mmol/L (137-145); TOTAL PROTEIN 7.1 gm/dL (6.4-8.2)
[2020-08-12 13:59] LABS: TROPONIN-I < 0.012 ng/mL (0.000-0.035)
[2020-08-12 15:07] VITALS: BP 128/87; PULSE 70
== END 2020-08-12 15:07 | disposition home or self-care (01) ==
LOC: COL.ER 11:18
PROVIDERS: Nurse Practitioner
DX: R07.89 Other chest pain (principal); I48.91 Unspecified atrial fibrillation; Z95.0 Presence of cardiac pacemaker; Z79.01 Long term (current) use of anticoagulants; Z88.6 Allergy status to analgesic agent

== ENCOUNTER 2020-10-19 10:20 | Emergency (ER) | payer OTHER ==
[~2020-10-19] VITALS: Ht 157.5 cm; Wt 61.4 kg
[2020-10-19 12:00] VITALS: BP 115/71
[2020-10-19 12:30] VITALS: PULSE 93; TEMP 100.1
== END 2020-10-19 12:49 | disposition home or self-care (01) ==
LOC: COL.ER 10:20
DX: M79.10 Myalgia, unspecified site (principal); T50.B95A Adverse effect of other viral vaccines, initial encounter; Z20.822 Contact with and (suspected) exposure to COVID-19
CPT/HCPCS: J0780; J1885; J7030

== ENCOUNTER 2020-10-21 10:58 | Emergency (ER) | payer OTHER ==
[~2020-10-21] VITALS: Ht 157.5 cm; Wt 61.4 kg
[2020-10-21] MEDS ORDERED: NORCO 325 MG-51 TAB PO (13:39)
[2020-10-21 14:01] VITALS: BP 150/90; PULSE 70; TEMP 97.6
== END 2020-10-21 14:00 | disposition home or self-care (01) ==
LOC: COL.ER 10:58
DX: M79.10 Myalgia, unspecified site (principal); T50.B95A Adverse effect of other viral vaccines, initial encounter; Z88.6 Allergy status to analgesic agent
CPT/HCPCS: J1885; J2360; J2550; J7030

== ENCOUNTER 2021-02-20 09:37 | Outpatient (CLI) | payer OTHER ==
[~2021-02-20] VITALS: Ht 157.5 cm; Wt 64.0 kg
[~2021-02-20 09:37] MED LIST changes: +METOPROLOL TA37.5 MG PO
[2021-02-20 10:20] VITALS: BP 109/72; PULSE 80; TEMP 98.1
[2021-02-20 10:22] LABS: ALBUMIN 4.7 gm/dL (3.5-5.0); BILIRUBIN,TOTAL 0.9 mg/dL (0.2-1.2); CALCIUM 9.5 mg/dL (8.4-10.2); CREATININE, serum 0.96 mg/dL (0.57-1.11); POTASSIUM 4.2 mmol/L (3.5-4.5); TOTAL PROTEIN 7.4 gm/dL (6.2-8.1)
[2021-02-20 10:44] LABS: THYROID STIMULATING HORMONE 0.769 uIU/mL (0.350-4.940)
[2021-02-20 11:30] VITALS: BP 113/74; PULSE 81
[2021-02-20 11:45] VITALS: BP 115/70; PULSE 98
[2021-02-20 12:00] VITALS: BP 112/70; PULSE 80
[2021-02-20 12:15] VITALS: BP 112/63; PULSE 80
[2021-02-20 12:30] VITALS: BP 104/66; PULSE 79
--- NOTE | 2021-02-20 13:20 | NUR ---
TO EXIT VIA WHEELCHAIR ESCORTED BY KAREN GONZALES
--- NOTE | 2021-02-20 13:27 | NUR ---
Discharge instructions given to pt.pt verbalizes understanding.Tylenol 650mg po per pt request.Pt escorted out via wheelhair by this nurse.
--- NOTE | 2021-02-20 13:40 | NUR ---
Pt escorted out via wheelchair.
== END 2021-02-20 14:24 ==
LOC: COL.RAD 09:37 → COL.LAB 09:37 → COL.RAD 10:30 → COL.LAB 14:24
PROVIDERS: Internal Medicine
DX: M48.02 Spinal stenosis, cervical region (principal); M89.38 Hypertrophy of bone, other site; E03.4 Atrophy of thyroid (acquired); M25.511 Pain in right shoulder
CPT/HCPCS: Q9967

== ENCOUNTER 2021-02-23 15:33 | Emergency (ER) | payer OTHER ==
[~2021-02-23] VITALS: Ht 157.5 cm; Wt 64.1 kg
[2021-02-23 22:50] VITALS: BP 139/87; PULSE 73; TEMP 97.5
== END 2021-02-23 22:50 | disposition home or self-care (01) ==
LOC: COL.ER 15:33
DX: G97.1 Other reaction to spinal and lumbar puncture (principal); R51.9 Headache, unspecified; J45.909 Unspecified asthma, uncomplicated; Z95.0 Presence of cardiac pacemaker; Z79.51 Long term (current) use of inhaled steroids; Z79.899 Other long term (current) drug therapy
CPT/HCPCS: J0595; J1200; J2060; J2765; J7030

== ENCOUNTER 2021-02-26 12:13 | Outpatient (CLI) | payer OTHER ==
[~2021-02-26] VITALS: Ht 157.5 cm; Wt 64.1 kg
--- NOTE | 2021-02-26 12:51 | NUR ---
Initial visit; Patient thanked Slasher Sawyer for offering encouragement and prayer prior to her 'Procedure.'
--- NOTE | 2021-02-26 14:00 | NUR ---
Pt's to bedside at 1530. Pt tolerates a sprite well and is feeling better. IV 500 mL bolus completed and IV discontinued to right ac. Discharge instructions given by CHRISTIAN Gray and pt taken to private car and left in care of her .
== END 2021-02-26 14:00 | disposition home or self-care (01) ==
LOC: SDCO 12:13
DX: R51.9 Headache, unspecified (principal)

== ENCOUNTER 2021-04-17 08:15 | Outpatient (RCR) | payer OTHER | END 2021-04-21 | disposition home or self-care (01) | LOC: MKS.ESL.PT | DX: M54.2 Cervicalgia (principal) ==

== ENCOUNTER → 2021-05-23 | Outpatient (CLI) | payer OTHER ==
[2021-05-23 10:04] LABS: BASO # 0.1 K/mm3 (0.0-0.2); BASO % 0.9 % (0.0-2.0); EOS # 0.3 K/mm3 (0.0-0.7); EOS % 4.2 % (0.0-4.0); GRAN # 3.4 K/mm3 (1.4-6.5); GRAN % 50.9 % (42.2-75.2); HEMATOCRIT 39.8 % (37.0-47.0); HEMOGLOBIN 13.8 g/dl (12.5-16.0); LYMPH # 2.4 K/mm3 (1.2-3.4); MEAN CELL VOLUME 92 fl (80.0-100.0); MEAN CORPUSCULAR HEMOGLOBIN 32 pg (27-31); MEAN CORPUSCULAR HGB CONC 35 g/dl (33.0-37.0); MEAN PLATELET VOLUME 9.3 fl (7.4-10.4); MONO # 0.4 K/mm3 (0.1-0.6); MONO % 6.5 % (1.7-9.3); PLATELET COUNT 241 K/mm3 (130-400); RED BLOOD COUNT 4.33 M/mm3 (4.10-5.30); REDCELL DISTRIBUTION WIDTH-CV 11.9 % (11.5-14.5)
[2021-05-23 10:16] LABS: ALBUMIN 4.4 gm/dL (3.5-5.0); BILIRUBIN,TOTAL 1.3 mg/dL (0.2-1.2); CALCIUM 9.5 mg/dL (8.4-10.2); CHOLESTEROL RISK RATIO 4.6; CREATININE, serum 0.92 mg/dL (0.57-1.11); POTASSIUM 4.2 mmol/L (3.5-4.5); TOTAL PROTEIN 6.9 gm/dL (6.2-8.1)
[2021-05-23 10:35] LABS: THYROID STIMULATING HORMONE 3.168 uIU/mL (0.350-4.940)
== END ==
LOC: COL.LAB 09:18
DX: E03.4 Atrophy of thyroid (acquired) (principal); I47.1 Supraventricular tachycardia

== ENCOUNTER → 2021-07-15 09:10 | Outpatient (RCR) | payer SELFPAY | END | disposition home or self-care (01) | LOC: MKS.ESL.PT 04-22 08:15 | DX: M54.2 Cervicalgia (principal) ==

== ENCOUNTER → 2021-07-15 09:11 | Outpatient (RCR) | payer OTHER | END | disposition home or self-care (01) | LOC: MKS.ESL.PT 04-22 09:00 | DX: M54.2 Cervicalgia (principal) ==

== ENCOUNTER 2021-08-17 15:44 | Emergency (ER) | payer OTHER ==
[~2021-08-17] VITALS: Ht 157.5 cm; Wt 63.6 kg
[2021-08-17 15:53] VITALS: TEMP 99.3
[2021-08-17 16:03] LABS: BASO # 0.1 K/mm3 (0.0-0.2); BASO % 0.8 % (0.0-2.0); EOS # 0.2 K/mm3 (0.0-0.7); EOS % 3.3 % (0.0-4.0); GRAN # 3.1 K/mm3 (1.4-6.5); GRAN % 42.4 % (42.2-75.2); HEMATOCRIT 42.4 % (37.0-47.0); HEMOGLOBIN 14.6 g/dl (12.5-16.0); LYMPH # 3.2 K/mm3 (1.2-3.4); LYMPH % 44.9 % (20.0-51.0); MEAN CELL VOLUME 91 fl (80.0-100.0); MEAN CORPUSCULAR HEMOGLOBIN 32 pg (27-31); MEAN CORPUSCULAR HGB CONC 34 g/dl (33.0-37.0); MEAN PLATELET VOLUME 9.2 fl (7.4-10.4); MONO # 0.6 K/mm3 (0.1-0.6); MONO % 8.3 % (1.7-9.3); PLATELET COUNT 270 K/mm3 (130-400); RED BLOOD COUNT 4.64 M/mm3 (4.10-5.30); REDCELL DISTRIBUTION WIDTH-CV 11.9 % (11.5-14.5)
[2021-08-17 16:10] LABS: INR 1.4 (0.8-3.0); PROTHROMBIN TIME 16.6 SECONDS (9.7-12.8)
[2021-08-17 16:17] LABS: ALBUMIN 4.3 gm/dL (3.5-5.0); CALCIUM 9.8 mg/dL (8.4-10.2); CREATININE, serum 0.97 mg/dL (0.57-1.11); POTASSIUM 3.5 mmol/L (3.5-4.5); TOTAL PROTEIN 7.5 gm/dL (6.2-8.1)
[2021-08-17 16:23] LABS: TROPONIN-I 0.011 ng/mL (0.00-0.033)
[2021-08-17 16:24] LABS: D-DIMER < 200.00 ng/mLDDu (200-230)
[2021-08-17 18:52] VITALS: BP 110/65; PULSE 78
== END 2021-08-17 18:52 | disposition home or self-care (01) ==
LOC: COL.ER 15:44
PROVIDERS: Nurse Practitioner Primary Care
DX: R10.13 Epigastric pain (principal); R11.0 Nausea; Z90.49 Acquired absence of other specified parts of digestive tract; Z91.040 Latex allergy status
CPT/HCPCS: J1170; J1200; J2405; J2550; J2930; J3010; J7030; Q9967

== ENCOUNTER → 2021-09-03 | Outpatient (CLI) | payer OTHER | LOC: MC.RAD 07:30 | DX: N63.11 Unspecified lump in the right breast, upper outer quadrant (principal) ==

== ENCOUNTER → 2021-09-15 | Outpatient (CLI) | payer OTHER | LOC: MC.RAD 10:54 | DX: N60.01 Solitary cyst of right breast (principal) ==

== ENCOUNTER → 2021-09-29 | Emergency (ER) | payer OTHER ==
[~2021-09-29] VITALS: Ht 157.5 cm; Wt 65.0 kg
[2021-09-29 22:12] VITALS: TEMP 98.7
[2021-09-29 23:13] LABS: BASO % 0.3 % (0.0-2.0); GRAN # 5.2 K/mm3 (1.4-6.5); GRAN % 80.2 % (42.2-75.2); HEMATOCRIT 38.7 % (37.0-47.0); HEMOGLOBIN 13.4 g/dl (12.5-16.0); LYMPH # 0.5 K/mm3 (1.2-3.4); LYMPH % 8.2 % (20.0-51.0); MEAN CELL VOLUME 91 fl (80.0-100.0); MEAN CORPUSCULAR HEMOGLOBIN 32 pg (27-31); MEAN CORPUSCULAR HGB CONC 35 g/dl (33.0-37.0); MEAN PLATELET VOLUME 9.5 fl (7.4-10.4); MONO # 0.7 K/mm3 (0.1-0.6); MONO % 10.8 % (1.7-9.3); PLATELET COUNT 193 K/mm3 (130-400); RED BLOOD COUNT 4.24 M/mm3 (4.10-5.30)
[2021-09-29 23:26] LABS: ALBUMIN 4.2 gm/dL (3.5-5.0); BILIRUBIN,TOTAL 0.9 mg/dL (0.2-1.2); CALCIUM 9.3 mg/dL (8.4-10.2); CREATININE, serum 1.04 mg/dL (0.57-1.11); POTASSIUM 3.4 mmol/L (3.5-4.5)
[2021-09-30 00:15] VITALS: BP 113/86; PULSE 100
== END ==
LOC: COL.ER 22:05
PROVIDERS: Personal Emergency Response Attendant
DX: U07.1 COVID-19 (principal); Z91.040 Latex allergy status
CPT/HCPCS: J2405; J3010; J7030; Q0222

== ENCOUNTER 2021-10-21 07:03 | Emergency (ER) | payer OTHER ==
[~2021-10-21] VITALS: Ht 157.5 cm; Wt 65.0 kg
[2021-10-21 07:12] VITALS: TEMP 97.8
[2021-10-21 07:38] LABS: BASO # 0.1 K/mm3 (0.0-0.2); BASO % 0.6 % (0.0-2.0); EOS # 0.2 K/mm3 (0.0-0.7); EOS % 2.3 % (0.0-4.0); GRAN # 5.7 K/mm3 (1.4-6.5); GRAN % 66.9 % (42.2-75.2); HEMATOCRIT 39.6 % (37.0-47.0); HEMOGLOBIN 13.9 g/dl (12.5-16.0); MEAN CELL VOLUME 90 fl (80.0-100.0); MEAN CORPUSCULAR HEMOGLOBIN 32 pg (27-31); MEAN CORPUSCULAR HGB CONC 35 g/dl (33.0-37.0); MEAN PLATELET VOLUME 9.4 fl (7.4-10.4); MONO # 0.6 K/mm3 (0.1-0.6); MONO % 6.9 % (1.7-9.3); PLATELET COUNT 288 K/mm3 (130-400); RED BLOOD COUNT 4.38 M/mm3 (4.10-5.30); REDCELL DISTRIBUTION WIDTH-CV 12.2 % (11.5-14.5)
[2021-10-21 07:47] LABS: ALBUMIN 4.2 gm/dL (3.5-5.0); BILIRUBIN,TOTAL 0.9 mg/dL (0.2-1.2); CALCIUM 9.6 mg/dL (8.4-10.2); CREATININE, serum 0.98 mg/dL (0.57-1.11); TOTAL PROTEIN 6.9 gm/dL (6.2-8.1)
[2021-10-21 07:53] LABS: TROPONIN-I 0.011 ng/mL (0.00-0.033)
[2021-10-21 09:04] LABS: COLLECTION METHOD CLEAN CATCH
[2021-10-21 09:17] LABS: SQUAMOUS EPITHELIAL 0-2 /hpf (0-10); URINE APPEARANCE Clear (CLEAR/HAZY); URINE BACTERIA None Seen /hpf (NONE SEEN); URINE COLOR Yellow (YELLOW); URINE RBC 0-2 /hpf (0-2)
[2021-10-21 09:18] LABS: PH 5.5 (5.0-8.5); URINE GLUCOSE Negative (NEGATIVE); URINE KETONE Negative (NEGATIVE); URINE NITRATE Negative (NEGATIVE); URINE PROTEIN(semi-quant) Negative (NEGATIVE); URINE UROBILINOGEN 0.2 E.U/dL (0.2-1.0)
[2021-10-21 09:20] LABS: URINE BLOOD TRACE-INTACT (NEGATIVE)
[2021-10-21] MEDS ORDERED: NORCO 325 MG-51 TAB PO (11:09)
[2021-10-21] MEDS ORDERED: ZOFRAN ODT4 MG PO (11:09)
[2021-10-21 11:41] VITALS: BP 105/62; PULSE 76
== END 2021-10-21 11:45 | disposition home or self-care (01) ==
LOC: COL.ER 07:03
PROVIDERS: Emergency Medicine
DX: R10.13 Epigastric pain (principal); R11.0 Nausea; E87.2 Acidosis; Z90.49 Acquired absence of other specified parts of digestive tract; Z91.040 Latex allergy status; Z88.6 Allergy status to analgesic agent
CPT/HCPCS: J1170; J1200; J2405; J2930; J3010; J7120; Q9967

== ENCOUNTER → 2021-10-23 | Outpatient (CLI) | payer OTHER ==
[2021-10-24 01:08] LABS: COMPLEMENT-C4 28 mg/dL (15-57)
[2021-10-28 20:36] LABS: C-ANCA 13 U/mL (0-99)
== END ==
LOC: COL.LAB 12:35
PROVIDERS: Internal Medicine
DX: I77.6 Arteritis, unspecified (principal); R10.9 Unspecified abdominal pain; G89.29 Other chronic pain

== ENCOUNTER → 2021-11-13 | Outpatient (CLI) | payer OTHER ==
[2021-11-13 10:10] LABS: INR 1.8 (0.8-3.0); PROTHROMBIN TIME 21.2 SECONDS (9.7-12.8)
[2021-11-13 10:12] LABS: PARTIAL THROMBOPLASTIN TIME 37.8 SECONDS (26.0-37.0)
== END ==
LOC: COL.LAB 09:20
PROVIDERS: Internal Medicine
DX: I77.6 Arteritis, unspecified (principal); I48.0 Paroxysmal atrial fibrillation; K55.069 Acute infarction of intestine, part and extent unspecified

== ENCOUNTER 2021-12-04 13:56 | Day surgery (SDC) | payer OTHER ==
[~2021-12-04] VITALS: Ht 157.5 cm; Wt 62.7 kg
--- NOTE | 2021-12-04 14:34 | NUR ---
Initial visit; Patient requested prayer prior to her "Procedure." Welding Machine Operator Arc offered comfort, encouragement and prayer for Janae that her Physician will find some answers for her to restore her to good health.
--- NOTE | 2021-12-04 14:34 | NUR ---
Initial visit; Patient requested prayer prior to her "Procedure." Lithographing Machine Operator offered comfort, encouragement and prayer for Janae that her Physician will find some answers for her to restore her to good health.
[2021-12-04 14:58] VITALS: BP 109/64; PULSE 84; TEMP 97.1
[2021-12-04 16:05] VITALS: BP 101/71; PULSE 79; TEMP 98
--- NOTE | 2021-12-04 16:05 | NUR ---
PT TO BAY 6 PER CART FROM PROCEDURE ROOM. REPORT RECEIVED. VS OBTAINED. CALL LIGHT WITHIN REACH. PT DENIES ANY NEEDS AT THIS TIME.
--- NOTE | 2021-12-04 16:05 | NUR ---
PT TO BAY 6 PER CART FROM PROCEDURE ROOM. REPORT RECEIVED. VS OBTAINED. CALL LIGHT WITHIN REACH. PT DENIES ANY NEEDS AT THIS TIME.
--- NOTE | 2021-12-04 16:13 | NUR ---
IN ROOM DISCUSSING FINDINGS FROM THE PROCEDURE.
--- NOTE | 2021-12-04 16:13 | NUR ---
IN ROOM DISCUSSING FINDINGS FROM THE PROCEDURE.
[2021-12-04 16:20] VITALS: BP 102/80; PULSE 79
--- NOTE | 2021-12-04 16:25 | NUR ---
PT TOLERATING SPRITE, MUFFIN, PUDDING, AND CRACKERS. DENIES ANY NEEDS.
--- NOTE | 2021-12-04 16:25 | NUR ---
PT TOLERATING SPRITE, MUFFIN, PUDDING, AND CRACKERS. DENIES ANY NEEDS.
[2021-12-04 16:35] VITALS: BP 115/79; PULSE 74
[2021-12-04 16:50] VITALS: BP 121/58; PULSE 71
[2021-12-04 17:05] VITALS: BP 118/80; PULSE 69
--- NOTE | 2021-12-04 17:30 | NUR ---
1705-IV DC'D AT THIS TIME. 1710-DISCHARGE EDUCATION COMPLETED WITH PT AND HER . VERBALIZED UNDERSTANDING OF HOME AND FOLLOW UP CARE. ALL QUESTIONS ANSWERED. DISCHARGE PAPERWORK GIVEN TO PT. 1730-PT OFF UNIT PER WHEELCHAIR. PT DISCHARGED TO HOME WITH PER PERSONAL VEHICLE.
== END 2021-12-04 17:30 | disposition home or self-care (01) ==
LOC: SDCO 13:56
DX: D12.5 Benign neoplasm of sigmoid colon (principal); K25.7 Chronic gastric ulcer without hemorrhage or perforation; K55.069 Acute infarction of intestine, part and extent unspecified; Z86.16 Personal history of COVID-19
CPT/HCPCS: J2704; J7120

== ENCOUNTER → 2021-12-09 | Outpatient (CLI) | payer OTHER | LOC: COL.LAB 09:55 → ZCOL.LAB 10:01 | DX: K55.069 Acute infarction of intestine, part and extent unspecified (principal); R19.7 Diarrhea, unspecified; R14.0 Abdominal distension (gaseous); R11.2 Nausea with vomiting, unspecified ==

== ENCOUNTER → 2021-12-19 | Outpatient (CLI) | payer OTHER | LOC: COL.RAD 10:54 | DX: K55.069 Acute infarction of intestine, part and extent unspecified (principal); I77.6 Arteritis, unspecified; R10.9 Unspecified abdominal pain; G89.29 Other chronic pain | CPT/HCPCS: Q9967 ==

== ENCOUNTER → 2022-01-01 | Outpatient (CLI) | payer OTHER | LOC: COL.RAD 12-31 08:00 | DX: K55.069 Acute infarction of intestine, part and extent unspecified (principal); K25.7 Chronic gastric ulcer without hemorrhage or perforation; R10.9 Unspecified abdominal pain; R11.2 Nausea with vomiting, unspecified; G89.29 Other chronic pain | CPT/HCPCS: A9541 ==